=== PATIENT | female | born 1980 | race African-American/Black ===

== ENCOUNTER 2019-05-01 13:47 | Inpatient (IN) ==
[2019-05-01] MEDS ORDERED: ALBUTEROL 2.5 MG/3 ML NEB RESP TX STA (14:17)
[2019-05-01] MEDS ORDERED: methylPREDNISolone SOD SUC 125 MG/2 ML VIAL IV STA (14:17)
[2019-05-01 15:11] LABS: Osmolality,Calculated 276.4 MOS/KG (273-304)
[2019-05-01 15:19] LABS: Basophils % 0.3 % (0.0-0.8); Eosinophils # 0.1 10*3/uL (0.0-0.87); Eosinophils % 0.7 % (0.00-10.9); Hematocrit 31.3 VOL% (35.7-47.0); Hemoglobin 9.3 GM/DL (12.0-16.0); Immature Granulocytes % 0.5 %; Immature Granulocytes Absolute 0.06 #; Lymphocytes # 1.3 10*3/uL (1.4-4.0); Lymphocytes % 10.8 % (21.3-54.2); Mean Corpuscular HGB Conc 29.7 GM/DL (32-36); Mean Corpuscular Volume 64.9 FL (87-102); Mean Platelet Volume 9.5 FL (9.6-12.0); Monocytes % 3.9 % (1.7-12.7); Neutrophils % 83.8 % (38.7-73.9); Platelet Count 300 T/CUMM (130-400); Red Blood Count 4.82 MC/CUMM (3.8-5.5); Red Cell Distribution Width 21.9 % (9.3-17.3); White Blood Count 11.8 T/CUMM (4-12)
[2019-05-01] MEDS ORDERED: IPRATROPIUM 500 MCG/2.5 ML NEB RESP TX STA (17:33)
[2019-05-01] MEDS ORDERED: ONDANSETRON 4 MG/2 ML VIAL IV PRN (17:55)
[2019-05-01] MEDS ORDERED: DOCUSATE SODIUM 100 MG CAPSULE PO PRN (17:55)
[2019-05-01] MEDS ORDERED: traZODone 50 MG TABLET PO PRN (17:55)
[2019-05-01] MEDS ORDERED: guaiFENesin/DM ER 600-30 MG TABLET PO PRN (17:55)
[2019-05-01] MEDS ORDERED: LACTULOSE 20 GM/30 ML UDCUP PO PRN (17:55)
[2019-05-01] MEDS ORDERED: ACETAMINOPHEN 325 MG TABLET PO PRN (17:55)
[2019-05-01] MEDS ORDERED: PROMETHAZINE 25 MG TABLET PO PRN (17:55)
[2019-05-01] MEDS ORDERED: NICOTINE 21 MG/24 HR PATCH TRANSDERM PRN (17:57)
[2019-05-01] MEDS ORDERED: ALBUTEROL/IPRATROPIUM 3 ML NEB RESP TX PRN (17:58)
[2019-05-01] MEDS ORDERED: ALBUTEROL 2.5 MG/3 ML NEB RESP TX PRN (17:58)
[2019-05-01] MEDS ORDERED: hydrALAZINE 20 MG/1 ML VIAL IV PRN (17:59)
[2019-05-01 18:16] LABS: ABG Base Excess 1.9 MMOL/L (-2.5-2.5); ABG Oxygen Saturation 94.8 % (95-100); ABG PCO2 34.8 MM HG (35-48); ABG PH 7.469 (7.35-7.45); ABG PO2 66.2 MM HG (80-95); ABG TCO2 22.9 MMOL/L (23-27)
[2019-05-01] MEDS: methylPREDNISolone SOD SUC 40 MG/1 ML VIAL IV SCH (21:10)
[2019-05-01] MEDS: ENOXAPARIN 40 MG/0.4 ML SYRINGE SUBCUT SCH (21:11)
[2019-05-01] MEDS: LEVOFLOXACIN INJ 500 MG in PREMIX 1 EACH IV SCH (21:11)
[2019-05-02] MEDS: methylPREDNISolone SOD SUC 40 MG/1 ML VIAL IV SCH ×4 (02:31→20:28)
[2019-05-02 06:42] LABS: Basophils % 0.1 % (0.0-0.8); Hemoglobin 9.4 GM/DL (12.0-16.0); Immature Granulocytes % 0.6 %; Immature Granulocytes Absolute 0.09 #; Lymphocytes # 0.9 10*3/uL (1.4-4.0); Lymphocytes % 6.3 % (21.3-54.2); Mean Corpuscular HGB Conc 28.7 GM/DL (32-36); Mean Corpuscular Volume 65.5 FL (87-102); Mean Platelet Volume 9.6 FL (9.6-12.0); Monocytes % 1.2 % (1.7-12.7); Neutrophils % 91.8 % (38.7-73.9); Platelet Count 325 T/CUMM (130-400); Red Blood Count 5.01 MC/CUMM (3.8-5.5); White Blood Count 14.7 T/CUMM (4-12)
[2019-05-02 07:02] LABS: Calcium 9.7 MG/DL (8.5-10.1); Osmolality,Calculated 276.8 MOS/KG (273-304)
[2019-05-02 07:06] LABS: Hematocrit 31.9 VOL% (35.7-47.0)
[2019-05-02 07:16] LABS: Lymphocytes 11 % (20-55); Platelet Estimate Normal; Polychromasia Slight; Segmented Neutrophils 89 % (50-85); Total Cells Counted 100
[2019-05-02 07:17] LABS: Hypochromasia 1+; Microcytosis 1+; Ovalocytes Slight; Target Cells Few
[2019-05-02] MEDS: amLODIPine 10 MG TABLET PO SCH (09:34)
[2019-05-02] MEDS: CARVEDILOL 6.25 MG TABLET PO SCH ×2 (09:34→16:57)
[2019-05-02] MEDS: CHLORTHALIDONE 25 MG TABLET PO SCH (09:34)
[2019-05-02] MEDS: FAMOTIDINE 20 MG TABLET PO SCH ×2 (09:34→20:28)
[2019-05-02] MEDS: PANTOPRAZOLE 40 MG TABLET PO SCH (09:34)
[2019-05-02] MEDS: FLUTICASONE/SALMETEROL 250-50 DISKUS 14 DOSE INH SCH ×2 (11:22→20:28)
[2019-05-02] MEDS: ALBUTEROL/IPRATROPIUM 3 ML NEB RESP TX SCH ×4 (11:27→23:48)
[2019-05-02] MEDS: FERROUS SULFATE 325 MG TABLET PO SCH (20:28)
[2019-05-02] MEDS: ENOXAPARIN 40 MG/0.4 ML SYRINGE SUBCUT SCH (20:28)
[2019-05-02] MEDS: LEVOFLOXACIN INJ 500 MG in PREMIX 1 EACH IV SCH (20:28)
[2019-05-03] MEDS: methylPREDNISolone SOD SUC 40 MG/1 ML VIAL IV SCH ×3 (02:21→16:50)
[2019-05-03] MEDS: ALBUTEROL/IPRATROPIUM 3 ML NEB RESP TX SCH ×5 (03:18→19:46)
[2019-05-03 07:14] LABS: Calcium 10.2 MG/DL (8.5-10.1); Osmolality,Calculated 276.7 MOS/KG (273-304)
[2019-05-03 07:15] LABS: Hematocrit 33.2 VOL% (35.7-47.0); Hemoglobin 9.8 GM/DL (12.0-16.0); Immature Granulocytes % 0.8 %; Immature Granulocytes Absolute 0.18 #; Lymphocytes # 0.9 10*3/uL (1.4-4.0); Lymphocytes % 4.1 % (21.3-54.2); Mean Corpuscular HGB Conc 29.5 GM/DL (32-36); Mean Corpuscular Volume 64.5 FL (87-102); Mean Platelet Volume 10.1 FL (9.6-12.0); Monocytes % 1.7 % (1.7-12.7); Neutrophils % 93.4 % (38.7-73.9); Platelet Count 336 T/CUMM (130-400); Red Blood Count 5.15 MC/CUMM (3.8-5.5); Red Cell Distribution Width 22.1 % (9.3-17.3); White Blood Count 21.3 T/CUMM (4-12)
[2019-05-03 07:18] LABS: % Iron Saturation 5.4 % (18-50); Ferritin 27.1 ng/ml (8-252)
[2019-05-03 07:21] LABS: Band Neutrophils 1 % (0-10); Hypochromasia 1+; Lymphocytes 3 % (20-55); Platelet Estimate Adequate; Segmented Neutrophils 96 % (50-85); Total Cells Counted 100
[2019-05-03] MEDS: FERROUS SULFATE 325 MG TABLET PO SCH ×2 (09:08→22:22)
[2019-05-03] MEDS: FAMOTIDINE 20 MG TABLET PO SCH (09:08)
[2019-05-03] MEDS: amLODIPine 10 MG TABLET PO SCH (09:10)
[2019-05-03] MEDS: CHLORTHALIDONE 25 MG TABLET PO SCH (09:11)
[2019-05-03] MEDS: PANTOPRAZOLE 40 MG TABLET PO SCH ×2 (09:11→22:22)
[2019-05-03] MEDS: CARVEDILOL 6.25 MG TABLET PO SCH ×2 (09:11→16:50)
[2019-05-03] MEDS: FLUTICASONE/SALMETEROL 250-50 DISKUS 14 DOSE INH SCH (09:12)
[2019-05-03] MEDS: HYDROcodone/CHLORPHENIRAMINE ER 5 ML UDCUP PO SCH ×2 (12:02→22:22)
[2019-05-03] MEDS: MONTELUKAST 10 MG TABLET PO SCH (12:02)
[2019-05-03] MEDS: LEVOFLOXACIN 500 MG TABLET PO SCH (14:11)
[2019-05-03] MEDS: BUDESONIDE/FORMOTEROL 160-4.5 INHALER 6 GM INH SCH (22:22)
[2019-05-03] MEDS: ENOXAPARIN 40 MG/0.4 ML SYRINGE SUBCUT SCH (22:22)
[2019-05-04] MEDS: ALBUTEROL/IPRATROPIUM 3 ML NEB RESP TX SCH ×3 (00:26→07:10)
[2019-05-04] MEDS: methylPREDNISolone SOD SUC 40 MG/1 ML VIAL IV SCH ×2 (01:39→09:43)
[2019-05-04 05:17] LABS: Basophils % 0.1 % (0.0-0.8); Hematocrit 31.5 VOL% (35.7-47.0); Hemoglobin 9.4 GM/DL (12.0-16.0); Immature Granulocytes % 1.1 %; Immature Granulocytes Absolute 0.23 #; Lymphocytes % 4.8 % (21.3-54.2); Mean Corpuscular HGB Conc 29.8 GM/DL (32-36); Mean Corpuscular Volume 64.2 FL (87-102); Mean Platelet Volume 9.7 FL (9.6-12.0); Platelet Count 372 T/CUMM (130-400); Red Blood Count 4.91 MC/CUMM (3.8-5.5); Red Cell Distribution Width 22.1 % (9.3-17.3); White Blood Count 21.2 T/CUMM (4-12)
[2019-05-04 05:40] LABS: Calcium 9.4 MG/DL (8.5-10.1); Osmolality,Calculated 274.1 MOS/KG (273-304)
[2019-05-04 05:47] LABS: Anisocytosis 1+; Hypochromasia 2+; Lymphocytes 4 % (20-55); Microcytosis 1+; Segmented Neutrophils 94 % (50-85); Total Cells Counted 100
[2019-05-04 05:48] LABS: Platelet Estimate Normal; Polychromasia Slight; Target Cells Slight
[2019-05-04 07:56] VITALS: BP 133/93
[2019-05-04] MEDS ORDERED: POTASSIUM CHLORIDE 20 MEQ TABLET PO ONE (09:00)
[2019-05-04] MEDS: PANTOPRAZOLE 40 MG TABLET PO SCH (09:41)
[2019-05-04] MEDS: FERROUS SULFATE 325 MG TABLET PO SCH (09:42)
[2019-05-04] MEDS: MONTELUKAST 10 MG TABLET PO SCH (09:42)
[2019-05-04] MEDS: HYDROcodone/CHLORPHENIRAMINE ER 5 ML UDCUP PO SCH (09:42)
[2019-05-04] MEDS: CHLORTHALIDONE 25 MG TABLET PO SCH (09:42)
[2019-05-04] MEDS: CARVEDILOL 6.25 MG TABLET PO SCH (09:42)
[2019-05-04] MEDS: LEVOFLOXACIN 500 MG TABLET PO SCH (09:42)
[2019-05-04] MEDS: amLODIPine 10 MG TABLET PO SCH (09:42)
[2019-05-04] MEDS: BUDESONIDE/FORMOTEROL 160-4.5 INHALER 6 GM INH SCH (09:43)
== END 2019-05-04 10:56 | disposition home or self-care (01) | DRG 202 ==
LOC: N.ED 13:47 → N.EDINP 13:47 → SUATTDRO 17:55 → N.2E 19:08
PROVIDERS: ADMIT Internal Medicine; ATTEND Family Medicine

== ENCOUNTER 2019-08-18 12:27 | Observation (INO) ==
[2019-08-18 14:43] LABS: Basophils # 0.1 10*3/uL (0.0-0.2); Basophils % 0.3 % (0.0-0.8); Eosinophils # 0.1 10*3/uL (0.0-0.87); Eosinophils % 0.4 % (0.00-10.9); Hematocrit 27.3 VOL% (35.7-47.0); Hemoglobin 7.8 GM/DL (12.0-16.0); Immature Granulocytes Absolute 0.21 #; Lymphocytes # 1.6 10*3/uL (1.4-4.0); Lymphocytes % 7.5 % (21.3-54.2); Mean Corpuscular HGB Conc 28.6 GM/DL (32-36); Mean Corpuscular Volume 62.6 FL (87-102); Mean Platelet Volume 9.1 FL (9.6-12.0); Monocytes % 2.9 % (1.7-12.7); NRBC # 0.02 10*3/uL; Neutrophils % 87.9 % (38.7-73.9); Platelet Count 391 T/CUMM (130-400); Red Blood Count 4.36 MC/CUMM (3.8-5.5); Red Cell Distribution Width 22.2 % (9.3-17.3); White Blood Count 21.2 T/CUMM (4-12)
[2019-08-18 14:59] LABS: Calcium 8.5 MG/DL (8.5-10.1); Osmolality,Calculated 270.8 MOS/KG (273-304)
[2019-08-18 15:13] LABS: Band Neutrophils 1 % (0-10); Lymphocytes 8 % (20-55); Segmented Neutrophils 88 % (50-85); Total Cells Counted 100
[2019-08-18 15:14] LABS: Hypochromasia 3+; Target Cells 2+
[2019-08-18 15:15] LABS: Microcytosis 1+
[2019-08-18 15:16] LABS: Polychromasia Few; Tear Drop Cells Few
[2019-08-18 15:17] LABS: Platelet Estimate Adequate
[2019-08-18] MEDS ORDERED: POTASSIUM CHLORIDE 20 MEQ TABLET PO STA (15:28)
[2019-08-18] MEDS ORDERED: ALBUTEROL/IPRATROPIUM 3 ML NEB RESP TX STA (15:29)
[2019-08-18 15:48] LABS: Apearance,Urine CLEAR (Clear); Bilirubin,Urine Negative (Negative); Blood, Urine Negative (Negative); Glucose,Urine (UA) Negative (Negative); Ketones,Urine Negative (Negative); Nitrite,Urine Negative (Negative); Protein,Urine Negative; RBC,Urine 1 /HPF (0-4); Urine Color Straw (Yellow); Urine Urobilinogen < 2.0 EU/DL (0.2-1.0); WBC,Urine <1 /HPF (0-6)
[2019-08-18] MEDS ORDERED: ONDANSETRON 4 MG/2 ML VIAL IV PRN (16:40)
[2019-08-18] MEDS ORDERED: ACETAMINOPHEN 325 MG TABLET PO PRN (16:40)
[2019-08-18] MEDS ORDERED: PNEUMOCOCCAL VACCINE (13 VALENT) 0.5 ML SYRINGE IM ONE (18:45)
[2019-08-18] MEDS: ALBUTEROL/IPRATROPIUM 3 ML NEB RESP TX SCH (19:54)
[2019-08-18] MEDS ORDERED: LEVOFLOXACIN INJ 500 MG in PREMIX 1 EACH IV SCH (20:00)
[2019-08-18] MEDS ORDERED: ENOXAPARIN 40 MG/0.4 ML SYRINGE SUBCUT SCH (21:00)
[2019-08-18] MEDS: methylPREDNISolone SOD SUC 40 MG/1 ML VIAL IV SCH (21:54)
[2019-08-18] MEDS: POTASSIUM CHLORIDE 20 MEQ TABLET PO PRN (21:54)
[2019-08-18] MEDS: carvediloL 6.25 MG TABLET PO SCH (21:55)
[2019-08-18] MEDS: BUDESONIDE/FORMOTEROL 160-4.5 INHALER 6 GM INH SCH (22:30)
[2019-08-19] MEDS: ALBUTEROL/IPRATROPIUM 3 ML NEB RESP TX SCH ×2 (00:43→06:50)
[2019-08-19] MEDS: POTASSIUM CHLORIDE 20 MEQ TABLET PO PRN ×3 (00:59→05:06)
[2019-08-19] MEDS ORDERED: FLUTICASONE 50 MCG NASAL SPRAY 16 GM BOTTLE BOTH NARES SCH (09:00)
[2019-08-19] MEDS ORDERED: PANTOPRAZOLE 40 MG TABLET PO SCH (09:00)
[2019-08-19] MEDS ORDERED: CHLORTHALIDONE 25 MG TABLET PO SCH (09:00)
[2019-08-19] MEDS ORDERED: MONTELUKAST 10 MG TABLET PO SCH (09:00)
[2019-08-19 09:45] LABS: Albumin 3.2 G/DL (3.4-5.0); Bilirubin,Total 0.4 MG/DL (0.2-1.0); Calcium 8.6 MG/DL (8.5-10.1); Total Protein 8.1 G/DL (6.4-8.3)
[2019-08-19] MEDS: methylPREDNISolone SOD SUC 40 MG/1 ML VIAL IV SCH (10:10)
[2019-08-19] MEDS: carvediloL 6.25 MG TABLET PO SCH (10:10)
[2019-08-19] MEDS: BUDESONIDE/FORMOTEROL 160-4.5 INHALER 6 GM INH SCH (10:11)
[2019-08-19 10:20] LABS: Basophils % 0.2 % (0.0-0.8); Immature Granulocytes % 0.8 %; Immature Granulocytes Absolute 0.13 #; Mean Corpuscular HGB Conc 27.9 GM/DL (32-36); Mean Corpuscular Volume 65.2 FL (87-102); Mean Platelet Volume 9.9 FL (9.6-12.0); Monocytes % 1.4 % (1.7-12.7); Neutrophils % 91.6 % (38.7-73.9); Platelet Count 418 T/CUMM (130-400); Red Blood Count 4.45 MC/CUMM (3.8-5.5); Red Cell Distribution Width 22.7 % (9.3-17.3); White Blood Count 16.3 T/CUMM (4-12)
[2019-08-19 10:21] LABS: Hemoglobin 8.1 GM/DL (12.0-16.0)
[2019-08-19 10:23] LABS: Band Neutrophils 1 % (0-10); Hypochromasia 1+; Lymphocytes 4 % (20-55); Macrocytosis Slight; Platelet Estimate Adequate; Polychromasia Slight; Segmented Neutrophils 92 % (50-85); Total Cells Counted 100
[2019-08-19 12:47] VITALS: BP 149/93
== END 2019-08-19 13:52 | disposition home or self-care (01) ==
LOC: N.ED 12:27 → N.EDINP 12:27 → SUATTDRO 16:40 → N.2W 18:28
PROVIDERS: ADMIT Internal Medicine; ATTEND Internal Medicine

== ENCOUNTER 2019-10-06 05:43 | Inpatient (IN) ==
[2019-09-23 14:05] LABS: Apearance,Urine CLEAR (Clear); Bilirubin,Urine Negative (Negative); Blood, Urine Negative (Negative); Glucose,Urine (UA) Negative (Negative); Ketones,Urine Negative (Negative); Nitrite,Urine Negative (Negative); Protein,Urine Negative; RBC,Urine <1 /HPF (0-4); Squamous Epithelial Cell,Urine Occasional /HPF (0-10); Urine Color Yellow (Yellow); Urine Specific Gravity 1.011 (1.001-1.035); Urine Urobilinogen < 2.0 EU/DL (0.2-1.0); WBC,Urine <1 /HPF (0-6)
[2019-09-23 14:05] LABS: INR 1.1; PT Patient Result 11.6 SECS (9.6-12.2); Partial Thromboplastin Time 23.4 SECS (20.8-36.0)
[2019-09-23 14:15] LABS: Basophils # 0.1 10*3/uL (0.0-0.2); Basophils % 0.7 % (0.0-0.8); Eosinophils % 0.5 % (0.00-10.9); Hematocrit 30.8 VOL% (35.7-47.0); Immature Granulocytes % 0.4 %; Immature Granulocytes Absolute 0.03 #; Lymphocytes # 2.2 10*3/uL (1.4-4.0); Lymphocytes % 30.4 % (21.3-54.2); Mean Corpuscular HGB Conc 28.2 GM/DL (32-36); Mean Corpuscular Volume 61.5 FL (87-102); Mean Platelet Volume 8.9 FL (9.6-12.0); Monocytes % 4.5 % (1.7-12.7); NRBC # 0.02 10*3/uL; Neutrophils % 63.5 % (38.7-73.9); Platelet Count 517 T/CUMM (130-400); Red Blood Count 5.01 MC/CUMM (3.8-5.5); Red Cell Distribution Width 24.5 % (9.3-17.3); White Blood Count 7.4 T/CUMM (4-12)
[2019-09-23 14:17] LABS: Hemoglobin 8.7 GM/DL (12.0-16.0)
[2019-09-23 23:11] LABS: Calcium 9.1 MG/DL (8.5-10.1); Osmolality,Calculated 273.5 MOS/KG (273-304)
[2019-10-06] MEDS ORDERED: ceFAZolin 1,000 MG in SYRINGE 1 EACH IV ONE (06:00)
[2019-10-06] MEDS ORDERED: ceFAZolin 1,000 MG VIAL ONE ×2 (06:19→07:51)
[2019-10-06] MEDS ORDERED: LIDOCAINE 1% 5 ML VIAL ONE (06:32)
[2019-10-06] MEDS ORDERED: BUPIVACAINE MPF 0.5% /EPI 30 ML VIAL ONE (06:32)
[2019-10-06] MEDS ORDERED: DEXAMETHASONE 4 MG/1 ML VIAL ONE ×2 (06:33→09:32)
[2019-10-06] MEDS ORDERED: SCOPOLAMINE 1.5 MG PATCH TRANSDERM ONE (06:44)
[2019-10-06] MEDS ORDERED: LACTATED RINGERS 1,000 ML IV SCH ×2 (07:00→09:30)
[2019-10-06] MEDS ORDERED: FAMOTIDINE 20 MG/2 ML VIAL IV ONE (07:04)
[2019-10-06] MEDS ORDERED: MAGNESIUM HYDROXIDE SUSP 30 ML UDCUP PO PRN (09:10)
[2019-10-06] MEDS ORDERED: ONDANSETRON 4 MG/2 ML VIAL IV PRN (09:10)
[2019-10-06] MEDS ORDERED: ACETAMINOPHEN 325 MG TABLET PO PRN (09:10)
[2019-10-06] MEDS ORDERED: BENZOCAINE/MENTHOL LOZENGE 18/BOX PO PRN (09:10)
[2019-10-06] MEDS ORDERED: BISACODYL 10 MG SUPP RECTAL PRN (09:10)
[2019-10-06] MEDS ORDERED: oxyCODONE/ACETAMINOPHEN 5-325 MG TABLET PO PRN (09:12)
[2019-10-06] MEDS ORDERED: LIDOCAINE 2% 5 ML VIAL ONE (09:31)
[2019-10-06] MEDS ORDERED: SEVOFLURANE 1 UNIT/15 MINUTE INH ONE (09:31)
[2019-10-06] MEDS ORDERED: propofoL 200 MG/20 ML VIAL IV ONE (09:31)
[2019-10-06 09:32] LABS: Apearance,Urine CLEAR (Clear); Bacteria,Urine Occasional /HPF (Few); Bilirubin,Urine Negative (Negative); Blood, Urine Negative (Negative); Glucose,Urine (UA) Negative (Negative); Ketones,Urine Negative (Negative); Mucus,Urine Occasional /LPF (Occasional); Nitrite,Urine Negative (Negative); Protein,Urine Negative; RBC,Urine 1 /HPF (0-4); Squamous Epithelial Cell,Urine Occasional /HPF (0-10); Urine Color Yellow (Yellow); WBC,Urine 1 /HPF (0-6)
[2019-10-06] MEDS ORDERED: NEOSTIGMINE 10 MG/10 ML VIAL ONE (09:32)
[2019-10-06] MEDS ORDERED: ACETAMINOPHEN 1,000 MG/100 ML VIAL IV ONE (09:32)
[2019-10-06] MEDS ORDERED: GLYCOPYRROLATE 0.4 MG/2 ML VIAL ONE (09:32)
[2019-10-06] MEDS ORDERED: fentaNYL 100 MCG/2 ML VIAL ONE (09:32)
[2019-10-06] MEDS ORDERED: MIDAZOLAM 2 MG/2 ML VIAL ONE (09:32)
[2019-10-06] MEDS ORDERED: LACTATED RINGERS 1,000 ML IV ONE (09:32)
[2019-10-06] MEDS ORDERED: ONDANSETRON 4 MG/2 ML VIAL ONE ×2 (09:32→09:35)
[2019-10-06] MEDS ORDERED: ROCURONIUM 100 MG/10 ML VIAL IV ONE (09:32)
[2019-10-06] MEDS: ONDANSETRON 4 MG/2 ML VIAL IV PRN ×2 (09:35→13:15)
[2019-10-06] MEDS ORDERED: HYDROmorphone 2 MG/1 ML VIAL ONE (09:35)
[2019-10-06] MEDS: HYDROmorphone 2 MG/1 ML VIAL IV PRN ×4 (09:36→12:00)
[2019-10-06] MEDS ORDERED: INFLUENZA VIRUS VACCINE 0.5 ML SYRINGE IM ONE (11:06)
[2019-10-06] MEDS: ceFAZolin 1,000 MG in SYRINGE 1 EACH IV SCH ×2 (16:30→23:45)
[2019-10-06] MEDS ORDERED: NALOXONE 0.4 MG/ML VIAL IV PRN (16:55)
[2019-10-06] MEDS ORDERED: HYDROmorphone PCA 30 MG/30 ML SYRINGE IV SCH (17:00)
[2019-10-06] MEDS ORDERED: KETOROLAC 30 MG/1 ML VIAL IV ONE (17:01)
[2019-10-06] MEDS: BUDESONIDE/FORMOTEROL 160-4.5 INHALER 6 GM INH SCH (21:41)
[2019-10-07] MEDS: ENOXAPARIN 40 MG/0.4 ML SYRINGE SUBCUT SCH (04:06)
[2019-10-07 06:20] LABS: Basophils % 0.2 % (0.0-0.8); Eosinophils % 0.1 % (0.00-10.9); Hematocrit 31.3 VOL% (35.7-47.0); Hemoglobin 9.1 GM/DL (12.0-16.0); Immature Granulocytes % 0.4 %; Immature Granulocytes Absolute 0.03 #; Mean Corpuscular HGB Conc 29.1 GM/DL (32-36); Mean Corpuscular Volume 63.1 FL (87-102); Monocytes % 6.3 % (1.7-12.7); Platelet Count 336 T/CUMM (130-400); Red Blood Count 4.96 MC/CUMM (3.8-5.5); Red Cell Distribution Width 26.5 % (9.3-17.3); White Blood Count 8.5 T/CUMM (4-12)
[2019-10-07 06:25] LABS: Hypochromasia 2+; Platelet Estimate Adequate
[2019-10-07] MEDS ORDERED: FLUTICASONE 50 MCG NASAL SPRAY 16 GM BOTTLE BOTH NARES SCH (09:00)
[2019-10-07] MEDS: BUDESONIDE/FORMOTEROL 160-4.5 INHALER 6 GM INH SCH ×2 (09:00→18:00)
[2019-10-07] MEDS: MONTELUKAST 10 MG TABLET PO SCH (09:30)
[2019-10-07] MEDS: DOCUSATE SODIUM 100 MG CAPSULE PO PRN (09:34)
[2019-10-07] MEDS: carvediloL 6.25 MG TABLET PO SCH ×2 (09:34→21:56)
[2019-10-07] MEDS: FERROUS SULFATE 325 MG TABLET PO SCH (09:34)
[2019-10-07] MEDS: CHLORTHALIDONE 25 MG TABLET PO SCH ×2 (09:34→21:56)
[2019-10-07] MEDS: PANTOPRAZOLE 40 MG TABLET PO SCH (09:34)
[2019-10-07] MEDS: SIMETHICONE CHEW 80 MG TABLET PO PRN ×2 (09:34→18:46)
[2019-10-07] MEDS: NICOTINE 21 MG/24 HR PATCH TRANSDERM SCH (09:38)
[2019-10-07] MEDS: IBUPROFEN 800 MG TABLET PO PRN ×2 (12:39→18:47)
[2019-10-08] MEDS: ENOXAPARIN 40 MG/0.4 ML SYRINGE SUBCUT SCH (03:57)
[2019-10-08 07:27] VITALS: BP 134/77
[2019-10-08] MEDS: IBUPROFEN 800 MG TABLET PO PRN (09:23)
[2019-10-08] MEDS: PANTOPRAZOLE 40 MG TABLET PO SCH (09:24)
[2019-10-08] MEDS: FERROUS SULFATE 325 MG TABLET PO SCH (09:24)
[2019-10-08] MEDS: DOCUSATE SODIUM 100 MG CAPSULE PO PRN (09:24)
[2019-10-08] MEDS: BUDESONIDE/FORMOTEROL 160-4.5 INHALER 6 GM INH SCH (09:25)
[2019-10-08] MEDS: CHLORTHALIDONE 25 MG TABLET PO SCH (09:25)
[2019-10-08] MEDS: NICOTINE 21 MG/24 HR PATCH TRANSDERM SCH (09:25)
[2019-10-08] MEDS: carvediloL 6.25 MG TABLET PO SCH (09:25)
[2019-10-08] MEDS: MONTELUKAST 10 MG TABLET PO SCH (09:25)
== END 2019-10-08 10:58 | disposition home or self-care (01) | DRG 743 ==
LOC: N.SDSINP 05:43 → N.OB 10:13
PROVIDERS: ADMIT Specialist; ATTEND Specialist